=== PATIENT | male | born 1930 | race Two or more races ===

== ENCOUNTER 2016-11-02 11:11 | Inpatient (IN) | payer SELFPAY ==
[2016-11-02] MEDS ORDERED: NOREPINEPHRIN PREMIX 250 ML IV ONE (11:30)
[2016-11-02 11:32] LABS: POTASSIUM ISTAT 5.7 mmol/L (3.5-5.0)
[2016-11-02 11:33] LABS: BASO % 0 % (0-3); EOS % 0 % (0-3); HEMATOCRIT 37.6 % (39.0-53.0); HEMOGLOBIN 10.4 g/dL (13.0-17.5); LYMPH # 3.2 x10^3/uL (1.0-4.8); LYMPH % 27 % (24-48); MEAN CORPUSCULAR HEMOGLOBIN 25 pg (25-35); MEAN CORPUSCULAR HGB CONC 28 g/dL (31-37); MEAN CORPUSCULAR VOLUME 90 fL (79-100); MONO % 2 % (0-9); NEUT % 71 % (31-73); PLATELET COUNT 261 x10^3/uL (140-400); RED BLOOD COUNT 4.17 x10^6/uL (4.30-5.70); RED CELL DISTRIBUTION WIDTH 18.6 % (11.5-14.5); WHITE BLOOD COUNT 12.1 x10^3/uL (4.0-11.0)
[2016-11-02 11:40] LABS: GLUCOSE,URINE NEGATIVE (NEG)
[2016-11-02 11:42] LABS: PROTHROMBIN TIME PATIENT 21.3 SEC (11.7-14.0)
--- NOTE | 2016-11-02 11:42 | RAD ---
Indication assess tube placement. Respiratory failure. A single view of the chest was obtained. No prior imaging is available. There is volume loss in the left lower lobe compatible with scar or atelectasis. There is a patchy opacity in the right lung. Pneumonia is not excluded. The heart and pulmonary vessels are within normal limits. There is no pleural fluid or pneumothorax. Endotracheal tube has its tip appropriately positioned above the james. Nasogastric tube has its tip in the expected position of the mid body of the stomach. There is a dilated bowel loop in the left abdomen probably reflecting dilatation of the large bowel at the splenic flexure. IMPRESSION: Appropriately positioned endotracheal and nasogastric tubes. Volume loss at the left lung base likely reflecting atelectasis or scar. Possible pneumonia in the right lung.
[2016-11-02] MEDS ORDERED: CALCIUM GLUCONATE 1,000 MG/10 ML VIAL. IVP ONE (11:45)
[2016-11-02 11:47] LABS: ALBUMIN 2.1 g/dL (3.4-5.0); CALCIUM 8.3 mg/dL (8.5-10.1); CREATININE 1.5 mg/dL (0.7-1.3); DIRECT BILIRUBIN 0.3 mg/dL (0.0-0.2); GFR 44.6; MAGNESIUM 3.7 mg/dL (1.8-2.4); TOTAL BILIRUBIN 1.1 mg/dL (0.2-1.0); TOTAL PROTEIN 5.5 g/dL (6.4-8.2)
[2016-11-02 11:54] LABS: POTASSIUM 6.1 mmol/L (3.5-5.1)
[2016-11-02 11:55] LABS: BACTERIA,URINE 0 /HPF (0-FEW); RBC,URINE 0 /HPF (0-2); WBC,URINE 0 /HPF (0-4)
[2016-11-02] MEDS ORDERED: PIP/TAZO PER PHARMACY MC PRN (12:00)
[2016-11-02] MEDS ORDERED: PIPERACILLIN/TAZOBACTAM 3.375 GM in IV NORMAL SALINE 50ML 50 ML IV ONE (12:00)
[2016-11-02] MEDS ORDERED: EPINEPHrine SYRINGE 1 MG/10 ML SYRINGE ONE (12:00)
--- NOTE | 2016-11-02 12:07 | RAD ---
Indication found unresponsive. Noncontrast images of the head were obtained. No prior imaging of the head is available. The calvarium appears unremarkable. There is a minimal amount of fluid in the left maxillary sinus. Moderate amount of fluid is seen in the sphenoid sinus. These findings are probably incidental. There is no subdural or epidural hematoma. There is some underlying atrophy. There is no hemorrhage mass or midline shift. An acute finding is not seen. IMPRESSION: Intracranially no acute finding seen. Moderate atrophy. Minimal amount of fluid in the left maxillary sinus and small amount of fluid in the sphenoid sinus. PQRS Compliance Statement: One or more of the following individualized dose reduction techniques were utilized for this examination: 1. Automated exposure control 2. Adjustment of the mA and/or kV according to patient size 3. Use of iterative reconstruction technique
[2016-11-02 12:20] LABS: FIO2 ABG 100; HCO3 ABG 7 mmol/L (21-28); PCO2 ABG 56 mmHg (35-46); PH ABG < 6.72 (7.35-7.45); PO2 ABG 325 mmHg (65-108); SAT O2 ABG 100 % (92-99)
[2016-11-02] MEDS ORDERED: SODIUM BICARB ADULT 8.4% 50 MEQ/50 ML DISP.SYRIN. IV ONE (12:30)
[2016-11-02] MEDS ORDERED: MIDAZOLAM HCL/PF 2 MG/2 ML VIAL. ONE (12:57)
[2016-11-02] MEDS ORDERED: fentaNYL PF VIAL 100 MCG/2 ML VIAL ONE (12:57)
[2016-11-02] MEDS ORDERED: MIDAZOLAM HCL/PF 2 MG/2 ML VIAL. IV ONE (13:00)
[2016-11-02] MEDS ORDERED: fentaNYL PF VIAL 100 MCG/2 ML VIAL IV ONE (13:00)
[2016-11-02 13:14] LABS: % EOS 2 % (0-5); PLT ESTIMATE ADEQUATE (ADEQUATE)
[2016-11-02] MEDS ORDERED: IV NORMAL SALINE 1000ML BAG 1,000 ML IV ONE ×2 (13:15→13:30)
[2016-11-02] MEDS ORDERED: VANCOMYCIN PER PHARMACY MC PRN (13:15)
[2016-11-02 13:16] LABS: ANISOCYTOSIS PRESENT; HYPOCHROMIA PRESENT; OVALOCYTES PRESENT; POIKILOCYTOSIS PRESENT; SCHISTOCYTES FEW
[2016-11-02] MEDS ORDERED: VANCOMYCIN 1.5 GM in IV NORMAL SALINE 500ML BAG 500 ML IV ONE (13:30)
[2016-11-02] MEDS ORDERED: IOHEXOL 300 MG/ML 75 ML VIAL IV ONE (13:30)
--- NOTE | 2016-11-02 13:30 | RAD ---
Portable chest, 11/02/2016, 1:17 PM: History: Check central line placement Comparison is made to a study from earlier the same day. A left jugular central venous catheter has been inserted extending into the superior vena cava. The ET tube has its tip located well above the james. The NG tube tip is projected over approximately the region of the GE junction. A sidehole lies in the distal esophagus. The patient positioning is kyphotic. The heart is at the upper limits of normal in size. There are moderate streaky bibasilar opacities suggesting atelectasis. There is no evidence of pneumothorax or significant pleural fluid. There is gaseous distention of bowel loops in the upper abdomen. IMPRESSION: 1. Interval insertion of a left jugular central venous catheter extending into the superior vena cava. 2. The ET tube is in satisfactory position. 3. The tip of the NG tube lies near the level of the GE junction and should be advanced. 4. Moderate bibasilar atelectasis.
--- NOTE | 2016-11-02 13:44 | EKG ---
[facility] [address] [place] [address] Test Date: 2016-11-02 Test Time: 11:20:50 Pat Name: CATHIE MANNING Department: Room: 103 1 Gender: M Millwright Supervisor: : [id number] Requested By: MANUEL PONCE Order Number: [id number] Reading MD: Yanira Paez Measurements Intervals Hubert Rate: 78 P: 34 [place]: 196 QRS: 49 QRSD: 100 T: -144 QT: 410 QTc: 471 Interpretive Statements SINUS RHYTHM T ABNORMALITY IN ANTERIOR LEADS LATERAL LEADS INFEROLATERAL LEADS ABNORMAL ECG RI6.01 No previous ECG available for comparison Electronically Signed On 11-02-2016 20:52:11 CDT by Yanira Paez
[2016-11-02 13:54] VITALS: BP 128/61
[2016-11-02] MEDS ORDERED: VASOPRESSIN 40 UNIT in IV DEXTROSE 5% 100 ML IV PRN (14:15)
[2016-11-02] MEDS ORDERED: PHENYLEPHRINE INJ 80 MG in IV NORMAL SALINE 250ML 250 ML IV PRN (14:15)
--- NOTE | 2016-11-02 14:22 | RAD ---
Indication unresponsive. Respiratory failure. Axial images through the chest were obtained. The examination was tailored for the detection of pulmonary embolus. MIP images were generated and reviewed. Proximally 75 cc of Omnipaque [address] imaging of the abdomen is available. Imaging through the upper abdomen demonstrates generalized dilatation of the visualized large bowel. This may reflect ileus. An obstructing lesion in the distal left colon cannot be entirely excluded. An acute finding in the visualized upper abdomen is not seen. Endotracheal tube is appropriately positioned above the james. Nasogastric tube extends into the stomach. The thoracic aorta is grossly unremarkable. There is no significant hilar or mediastinal adenopathy. The study is negative for pulmonary embolus. A dominant soft tissue mass in either lung is not seen. There is volume loss in both lower lobes right somewhat greater than left compatible with atelectasis scar or pneumonia. There is marked compression of a thoracolumbar vertebral body segment and moderate compression of the immediately adjacent, caudal, segment. The chronicity of these findings is uncertain. IMPRESSION: Negative study for pulmonary embolus. Volume loss at the lung bases right greater than left compatible with atelectasis or pneumonia. Generalized dilatation of the visualized large bowel may reflect ileus. An obstructing lesion in the distal left colon cannot be entirely excluded. Compressed thoracolumbar vertebral body segments the chronicity of which is uncertain PQRS Compliance Statement: One or more of the following individualized dose reduction techniques were utilized for this examination: 1. Automated exposure control 2. Adjustment of the mA and/or kV according to patient size 3. Use of iterative reconstruction technique
[2016-11-02 14:34] LABS: HEMATOCRIT 36.3 % (39.0-53.0); RED BLOOD COUNT 4.08 x10^6/uL (4.30-5.70); RED CELL DISTRIBUTION WIDTH 18.5 % (11.5-14.5); WHITE BLOOD COUNT 17.4 x10^3/uL (4.0-11.0)
[2016-11-02] MEDS ORDERED: EPINEPHrine SYRINGE 1 MG/10 ML SYRINGE IV ONE ×2 (14:45)
--- NOTE | 2016-11-02 14:46 | PDOC1 ---
History and Physical Date of Admission Date of Admission DATE: 11/02/16 TIME: 14:35 Identification/Chief Complaint Chief Complaint cardiac arrest Problems: Source Source: Caregiver, Chart review History of Present Illness History of Present Illness 85 y.o male lives at home with dtr-in-law, bed bound (does not walk anymore and has chronic leg swelling), was having coughing spells this AM around 10 AM around breakfast time. NExt thing they realize, he slumped, stopped breathing and as per family acct was not breathing for a good 15 mins, EMS arrived, CPR performed at home, rhythms were asystole and pEA. Pt was intubated at ER, pupils blown out, needing 2 pressors at ER level, no response. Now seen in ICU, no sedation, cold to touch, on 3rd pressor, no urine output ( 50cc in bag). LActate 14, CXR and CT head read as unremarkable, got broad spectrum at ER x 1, Per family, only past medical is HTN, GERD., No known cardiac or pulmo hx. K 6 BIcarb is 8, pH on ABG is 6,.7, LActate of 14 AFTER HEAVY discussion and sitting down with the son and the rest of family members with an malay speaking relative, they all agreed on my recommendation of withdrawal of care and DNR. Waiting on sister tiffanie Dougherty who is currently enroute. Alex COMPUTER SYSTEMS SUPPORT SPECIALIST and MD financial sales consultant celena, Past Medical History Cardiovascular: HTN GI: GERD Past Surgical History Past Surgical History: No pertinent history Family History Family History: Family History Unknown Social History Smoke: No ALCOHOL: none Drugs: None Current Problem List Problem List Problems Medical Problems: (1) Respiratory failure Status: Acute Problems: Current Medications Current Medications Current Medications Epinephrine HCl 4 mg/Sodium Chloride 254 ml @ 3.81 mls/hr 1X ONCE IV Last administered on 11/02/16 13:26; Start 11/02/16 at 11:30; Stop 11/05/16 at 06:09 Norepinephrine Bitartrate (Levophed 8mg/ 250ml Premix Drip) 250 ml @ 0 mls/hr 1X ONCE IV Last administered on 11/02/16 11:28; Start 11/02/16 at 11:30; Stop 11/02/16 at 11:31; Status DC Calcium Gluconate 1000 mg 1,000 mg 1X ONCE IVP Last administered on 11/02/16 12:08; Start 11/02/16 at 11:45; Stop 11/02/16 at 11:46; Status DC Epinephrine HCl/ Sodium Chloride (Adrenalin/Iv Sodium Chloride 0.9% 250ml) 254 ml @ 0 mls/hr CONT PRN IV SEE I/O RECORD; Start 11/02/16 at 11:45 Piperacillin Sod/ Tazobactam Sod 1 each 1 each PRN DAILY PRN MC SEE COMMENTS; Start 11/02/16 at 12:00 Piperacillin Sod/ Tazobactam Sod/ Sodium Chloride (Zosyn/Iv Sodium Chloride 0.9 % 50ml) 50 ml @ 100 mls/hr 1X ONCE IV Last administered on 11/02/16 12:08; Start 11/02/16 at 12:00; Stop 11/02/16 at 12:29; Status DC Sodium Bicarbonate 100 meq 1X ONCE IV ; Start 11/02/16 at 12:30; Stop 11/02/16 at 12:31; Status DC Fentanyl Citrate (Fentanyl 2ml Vial) 25 mcg 1X ONCE IV Last administered on 13:00; Start 11/02/16 at 13:00; Stop 11/02/16 at 13:01; Status DC Midazolam HCl (Versed) 2 mg 1X ONCE IV Last administered on 11/02/16 13:00; Start 11/02/16 at 13:00; Stop 11/02/16 at 13:01; Status DC Fentanyl Citrate (Fentanyl 2ml Vial) 100 mcg STK-MED ONCE .ROUTE ; Start at 12:57; Stop 11/02/16 at 12:58; Status DC Midazolam HCl (Versed) 2 mg STK-MED ONCE .ROUTE ; Start 11/02/16 at 12:57; Stop 11/02/16 at 12:58; Status DC Vancomycin HCl 1 each 1 each PRN DAILY PRN MC SEE COMMENTS; Start 11/02/16 at 13 :15 Vancomycin HCl 1.5 gm/Sodium Chloride 500 ml @ 250 mls/hr 1X ONCE IV ; Start 11/02/16 at 13:30; Stop 11/02/16 at 15:29 Sodium Chloride 1,000 ml @ 1,000 mls/hr 1X ONCE IV Last administered on 5/3/ 17at 11:18; Start 11/02/16 at 13:15; Stop 11/02/16 at 14:14; Status DC Sodium Chloride (Iv Sodium Chloride 0.9% 1000ml Bag) 1,000 ml @ 1,000 mls/hr 1X ONCE IV ; Start 11/02/16 at 13:30; Stop 11/02/16 at 14:29; Status DC Iohexol 60 ml 60 ml 1X ONCE IV Last administered on 11/02/16t 13:46; Start 11/02 at 13:30; Stop 11/02/16 at 13:31; Status DC Phenylephrine HCl 80 mg/Sodium Chloride 258 ml @ 0 mls/hr CONT PRN IV SEE I/O RECORD; Start 11/02/16 at 14:15 Vasopressin/ Dextrose (Vasostrict) 102 ml @ 6 mls/hr CONT PRN IV SEE I/O RECORD ; Start 11/02/16 at 14:15 Allergies Allergies: Coded Allergies: Unable to Assess (Unverified , 11/02/16) ROS Review of System unable to obtain - clinically brain Physical Exam General: Other (unresponsive, intubated) HEENT: Atraumatic, Other (blown out pupil, no conjunctival reflex) Lungs: Normal air movement Heart: S1S2 Cardiovascular: S1, S2, Other (sinus tachy) Abdomen: Normal bowel sounds, Soft, No tenderness, No hepatosplenomegaly, No masses Male Genitals Exam: normal genitalia, normal prostate, other (no UO) Rectal Exam: not examined PELVIC: Nml ext genitalia Extremities: Other (swelling plus 2-3, pitting) Skin: Other (cold to touch) Vitals Vitals Vital Signs Date Time Temp Pulse Resp B/P Pulse Ox O2 Delivery O2 Flow Rate FiO2 11/02/16 13:08 85 20 131/54 99 Ventilator Labs Labs Laboratory Tests Test 11/02/16 11:12 11/02/16 11:16 11/02/16 11:19 11/02/16 11:25 White Blood Count 12.1x10^3/uL (4.0-11.0) Red Blood Count 4.17x10^6/uL (4.30-5.70) Hemoglobin 10.4g/dL (13.0-17.5) Hematocrit 37.6% (39.0-53.0) Mean Corpuscular Volume 90fL (79-100) Mean Corpuscular Hemoglobin 25pg (25-35) Mean Corpuscular Hemoglobin Concent 28g/dL (31-37) Red Cell Distribution Width 18.6% (11.5-14.5) Platelet Count 261x10^3/uL (140-400) Neutrophils (%) (Auto) 71% (31-73) Lymphocytes (%) (Auto) 27% (24-48) Monocytes (%) (Auto) 2% (0-9) Eosinophils (%) (Auto) 0% (0-3) Basophils (%) (Auto) 0% (0-3) Neutrophils # (Auto) 8.6x10^3uL (1.8-7.7) Lymphocytes # (Auto) 3.2x10^3/uL (1.0-4.8) Monocytes # (Auto) 0.2x10^3/uL (0.0-1.1) Eosinophils # (Auto) 0.1x10^3/uL (0.0-0.7) Basophils # (Auto) 0.0x10^3/uL (0.0-0.2) Segmented Neutrophils % 50% (35-66) Band Neutrophils % 11% (0-9) Lymphocytes % 28% (24-48) Monocytes % 9% (0-10) Eosinophils % 2% (0-5) Platelet Estimate Adequate (ADEQUATE) Hypochromasia Present Poikilocytosis Present Anisocytosis Present Ovalocytes Present Schistocytes Few Prothrombin Time 21.3SEC (11.7-14.0) Prothromb Time International Ratio 2.0 (0.8-1.1) Sodium Level 145mmol/L (136-145) Potassium Level 6.1mmol/L (3.5-5.1) Chloride Level 111mmol/L (98-107) Carbon Dioxide Level 13mmol/L (21-32) Anion Gap 21 (6-14) 21mmol/L (6-14) Blood Urea Nitrogen 33mg/dL (8-26) Creatinine 1.5mg/dL (0.7-1.3) Estimated GFR (Cockcroft-Gault) 44.6 Glucose Level 224mg/dL (70-99) 203mg/dL (70-99) Lactic Acid Level 14.5mmol/L (0.4-2.0) Calcium Level 8.3mg/dL (8.5-10.1) Magnesium Level 3.7mg/dL (1.8-2.4) Total Bilirubin 1.1mg/dL (0.2-1.0) Direct Bilirubin 0.3mg/dL (0.0-0.2) Aspartate Amino Transf (AST/SGOT) 148U/L (15-37) Alanine Aminotransferase (ALT/SGPT) 130U/L (16-63) Alkaline Phosphatase 100U/L (46-116) Creatine Kinase 143U/L (39-308) Creatine Kinase MB (Mass) 2.0ng/mL (0.0-3.6) Creatine Kinase MB Relative Index 1.4% (0-4) Troponin I Quantitative < 0.017ng/mL (0.000-0.055) BD-Rzo-T-Type Natriuretic Peptide 773pg/mL (0-449) Total Protein 5.5g/dL (6.4-8.2) Albumin 2.1g/dL (3.4-5.0) Bedside Troponin I 0.01ng/ml (<0.08) Bedside Hemoglobin 12.2g/dL (14-18) Bedside Hematocrit 36% (37-52) Bedside Sodium 142mmol/L (135-145) Bedside Potassium 5.7mmol/L (3.5-5.0) Bedside Chloride 114mmol/L (98-110) Bedside Total CO2 14mmol/L (23-32) Bedside Blood Urea Nitrogen 38mg/dL (8-26) Bedside Creatinine 1.1mg/dL (0.5-1.4) Bedside Ionized Calcium (Allan) 1.02mmol/L (1.13-1.32) Urine Collection Type U cath Urine Color Red Urine Clarity Clear Urine pH 5.0 Urine Specific Globe >=1.030 Urine Protein mg/dL (NEG-TRACE) Urine Glucose (UA) Negativemg/dL (NEG) Urine Ketones (Stick) mg/dL (NEG) Urine Blood Negative (NEG) Urine Nitrite (NEG) Urine Bilirubin (NEG) Urine Urobilinogen Dipstick mg/dL (0.2 mg/dL) Urine Leukocyte Esterase (NEG) Urine RBC 0/HPF (0-2) Urine WBC 0/HPF (0-4) Urine Bacteria 0/HPF (0-FEW) Test 11/02/16 11:54 O2 Saturation 100% (92-99) Arterial Blood pH < 6.72 (7.35-7.45) Arterial Blood pCO2 at Patient Temp 56mmHg (35-46) Arterial Blood pO2 at Patient Temp 325mmHg (65-108) Arterial Blood HCO3 7mmol/L (21-28) Arterial Blood Base Excess -28mmol/L (-3-3) FiO2 100 Laboratory Tests Test 11/02/16 11:12 11/02/16 11:16 11/02/16 11:19 11/02/16 11:25 White Blood Count 12.1x10^3/uL (4.0-11.0) Red Blood Count 4.17x10^6/uL (4.30-5.70) Hemoglobin 10.4g/dL (13.0-17.5) Hematocrit 37.6% (39.0-53.0) Mean Corpuscular Volume 90fL (79-100) Mean Corpuscular Hemoglobin 25pg (25-35) Mean Corpuscular Hemoglobin Concent 28g/dL (31-37) Red Cell Distribution Width 18.6% (11.5-14.5) Platelet Count 261x10^3/uL (140-400) Neutrophils (%) (Auto) 71% (31-73) Lymphocytes (%) (Auto) 27% (24-48) Monocytes (%) (Auto) 2% (0-9) Eosinophils (%) (Auto) 0% (0-3) Basophils (%) (Auto) 0% (0-3) Neutrophils # (Auto) 8.6x10^3uL (1.8-7.7) Lymphocytes # (Auto) 3.2x10^3/uL (1.0-4.8) Monocytes # (Auto) 0.2x10^3/uL (0.0-1.1) Eosinophils # (Auto) 0.1x10^3/uL (0.0-0.7) Basophils # (Auto) 0.0x10^3/uL (0.0-0.2) Segmented Neutrophils % 50% (35-66) Band Neutrophils % 11% (0-9) Lymphocytes % 28% (24-48) Monocytes % 9% (0-10) Eosinophils % 2% (0-5) Platelet Estimate Adequate (ADEQUATE) Hypochromasia Present Poikilocytosis Present Anisocytosis Present Ovalocytes Present Schistocytes Few Prothrombin Time 21.3SEC (11.7-14.0) Prothromb Time International Ratio 2.0 (0.8-1.1) Sodium Level 145mmol/L (136-145) Potassium Level 6.1mmol/L (3.5-5.1) Chloride Level 111mmol/L (98-107) Carbon Dioxide Level 13mmol/L (21-32) Anion Gap 21 (6-14) 21mmol/L (6-14) Blood Urea Nitrogen 33mg/dL (8-26) Creatinine 1.5mg/dL (0.7-1.3) Estimated GFR (Cockcroft-Gault) 44.6 Glucose Level 224mg/dL (70-99) 203mg/dL (70-99) Lactic Acid Level 14.5mmol/L (0.4-2.0) Calcium Level 8.3mg/dL (8.5-10.1) Magnesium Level 3.7mg/dL (1.8-2.4) Total Bilirubin 1.1mg/dL (0.2-1.0) Direct Bilirubin 0.3mg/dL (0.0-0.2) Aspartate Amino Transf (AST/SGOT) 148U/L (15-37) Alanine Aminotransferase (ALT/SGPT) 130U/L (16-63) Alkaline Phosphatase 100U/L (46-116) Creatine Kinase 143U/L (39-308) Creatine Kinase MB (Mass) 2.0ng/mL (0.0-3.6) Creatine Kinase MB Relative Index 1.4% (0-4) Troponin I Quantitative < 0.017ng/mL (0.000-0.055) RU-Dwr-S-Type Natriuretic Peptide 773pg/mL (0-449) Total Protein 5.5g/dL (6.4-8.2) Albumin 2.1g/dL (3.4-5.0) Bedside Troponin I 0.01ng/ml (<0.08) Bedside Hemoglobin 12.2g/dL (14-18) Bedside Hematocrit 36% (37-52) Bedside Sodium 142mmol/L (135-145) Bedside Potassium 5.7mmol/L (3.5-5.0) Bedside Chloride 114mmol/L (98-110) Bedside Total CO2 14mmol/L (23-32) Bedside Blood Urea Nitrogen 38mg/dL (8-26) Bedside Creatinine 1.1mg/dL (0.5-1.4) Bedside Ionized Calcium (Allan) 1.02mmol/L (1.13-1.32) Urine Collection Type U cath Urine Color Red Urine Clarity Clear Urine pH 5.0 Urine Specific Globe >=1.030 Urine Protein mg/dL (NEG-TRACE) Urine Glucose (UA) Negativemg/dL (NEG) Urine Ketones (Stick) mg/dL (NEG) Urine Blood Negative (NEG) Urine Nitrite (NEG) Urine Bilirubin (NEG) Urine Urobilinogen Dipstick mg/dL (0.2 mg/dL) Urine Leukocyte Esterase (NEG) Urine RBC 0/HPF (0-2) Urine WBC 0/HPF (0-4) Urine Bacteria 0/HPF (0-FEW) Test 11/02/16 11:54 O2 Saturation 100% (92-99) Arterial Blood pH < 6.72 (7.35-7.45) Arterial Blood pCO2 at Patient Temp 56mmHg (35-46) Arterial Blood pO2 at Patient Temp 325mmHg (65-108) Arterial Blood HCO3 7mmol/L (21-28) Arterial Blood Base Excess -28mmol/L (-3-3) FiO2 100 VTE Prophylaxis Ordered VTE Prophylaxis Devices: Contraindicated VTE Pharmacological Prophylaxi: Contraindicated Assessment/Plan Assessment/Plan 1, Prolong cardio-pulmonary arrest, outside of the hospital 2. HTN by hx 3. PArkinsons by hx 4. GERD with minor gIB by hx 5. GAp metabolic acidosis with CRITICALLY elevated lactate (14) 6. LEulocytosis post cardiac arrest 7. LIkely aspiration causing respiratory arrest 8. BEd bound, chronic leg swelling 9. ACidemia with pH 6.7 incompatible with life 10. Anemia, likely chronic 11. Anuric renal failure 12. DNR PLAN: NOw DNR, withdrawal of care later when sister arrives Dw COMPUTER SYSTEMS SUPPORT SPECIALIST and family CC 40 mins AYESHA GAMEZ MD November 02, 2016 14:46
[2016-11-02 14:55] LABS: ALBUMIN 1.8 g/dL (3.4-5.0); ALBUMIN/GLOBULIN RATIO 0.5 (1.0-1.7); CALCIUM 7.7 mg/dL (8.5-10.1); CREATININE 1.6 mg/dL (0.7-1.3); GFR 41.4; MAGNESIUM 3.8 mg/dL (1.8-2.4); TOTAL BILIRUBIN 1.2 mg/dL (0.2-1.0); TOTAL PROTEIN 5.1 g/dL (6.4-8.2)
--- NOTE | 2016-11-02 14:58 | PHYS DOC ---
Past Medical History Past Medical History: Other Additional Past Medical Histor: parkinsons Past Surgical History: Other Additional Past Surgical Histo: unknown Alcohol Use: None Drug Use: None Adult General Chief Complaint Chief Complaint: CPR/FULL ARREST HPI HPI Patient is a 85 year old male who presents after cardiac arrest. Patient was at home sitting on a Family Members Noticed He Was Unresponsive. 911 Was Called and EMS Reported That He Was Pulseless upon Arrival. They Initiated CPR, Patient Had a Initial Rhythm of Asystole, Epinephrine Was Given, IO Was Placed, LMA airway was placed as They Could Not Perform Endotracheal Intubation. Patient went into PDA. Total of 3 rounds of epinephrine given by EMS. Patient's pulse returned, appeared to be sinus to EMS. No other significant history was reported, family told paramedics patient had hypertension. There was a language barrier at the scene. Review of Systems Review of Systems Unable to obtain due to medical condition Current Medications Current Medications Current Medications Medications (Trade) Dose Ordered Sig/Charles Start Time Stop Time Status Last Admin Dose Admin Calcium Gluconate 1000 mg 1,000 mg 1X ONCE 11/02/16 11:45 11/02/16 11:46 DC 11/02/16 12:08 1,000 MG Epinephrine HCl 4 mg/Sodium Chloride 254 ml @ 3.81 mls/hr 1X ONCE 11/02/16 11:30 11/05/16 06:09 11/02/16 13:26 3.81 MLS/HR Epinephrine HCl/ Sodium Chloride (Adrenalin/Iv Sodium Chloride 0.9% 250ml) 254 ml @ 0 mls/hr CONT PRN 11/02/16 11:45 Norepinephrine Bitartrate (Levophed 8mg/ 250ml Premix Drip) 250 ml @ 0 mls/hr 1X ONCE 11/02/16 11:30 11/02/16 11:31 DC 11/02/16 11:28 9.375 MLS/HR Piperacillin Sod/ Tazobactam Sod 1 each 1 each PRN DAILY PRN 11/02/16 12:00 Piperacillin Sod/ Tazobactam Sod/ Sodium Chloride (Zosyn/Iv Sodium Chloride 0.9% 50ml) 50 ml @ 100 mls/hr 1X ONCE 11/02/16 12:00 11/02/16 12:29 DC 11/02/16 12:08 100 MLS/HR Sodium Bicarbonate 100 meq 1X ONCE 11/02/16 12:30 11/02/16 12:31 DC Allergies Allergies Allergies Coded Allergies Type Severity Reaction Last Updated Verified Unable to Assess 11/02/16 No Physical Exam Physical Exam Constitutional: Unresponsive, actively being bagged HENT: Normocephalic, atraumatic, dry mucous membranes, appears to have a vomit on the right side of his cheek Eyes:pupils are blown bilaterally and unreactive Neck: Trachea is midline Cardiovascular:Heart rate regular with regular rhythm Lungs & Thorax: No spontaneous respirations, bilateral breath sounds with bagging Abdomen: Soft, nondistended Skin: Warm, dry Extremities: No deformity, no significant edema Neurologic: Obtunded Current Patient Data Vital Signs Vital Signs Date Time Temp Pulse Resp B/P Pulse Ox O2 Delivery O2 Flow Rate FiO2 11/02/16 12:33 60 92/39 97 Ventilator 11/02/16 12:28 20 Lab Values Laboratory Tests Test 11/02/16 11:12 11/02/16 11:16 11/02/16 11:19 11/02/16 11:25 White Blood Count 12.1x10^3/uL (4.0-11.0) H Red Blood Count 4.17x10^6/uL (4.30-5.70) L Hemoglobin 10.4g/dL (13.0-17.5) L Hematocrit 37.6% (39.0-53.0) L Mean Corpuscular Volume 90fL (79-100) Mean Corpuscular Hemoglobin 25pg (25-35) Mean Corpuscular Hemoglobin Concent 28g/dL (31-37) L Red Cell Distribution Width 18.6% (11.5-14.5) H Platelet Count 261x10^3/uL (140-400) Neutrophils (%) (Auto) 71% (31-73) Lymphocytes (%) (Auto) 27% (24-48) Monocytes (%) (Auto) 2% (0-9) Eosinophils (%) (Auto) 0% (0-3) Basophils (%) (Auto) 0% (0-3) Neutrophils # (Auto) 8.6x10^3uL (1.8-7.7) H Lymphocytes # (Auto) 3.2x10^3/uL (1.0-4.8) Monocytes # (Auto) 0.2x10^3/uL (0.0-1.1) Eosinophils # (Auto) 0.1x10^3/uL (0.0-0.7) Basophils # (Auto) 0.0x10^3/uL (0.0-0.2) Segmented Neutrophils % 50% (35-66) Band Neutrophils % 11% (0-9) H Lymphocytes % 28% (24-48) Monocytes % 9% (0-10) Eosinophils % 2% (0-5) Platelet Estimate Adequate (ADEQUATE) Hypochromasia Present Poikilocytosis Present Anisocytosis Present Ovalocytes Present Schistocytes Few Prothrombin Time 21.3SEC (11.7-14.0) H Prothrombin Time INR 2.0 (0.8-1.1) H Sodium Level 145mmol/L (136-145) Potassium Level 6.1mmol/L (3.5-5.1) *H Chloride Level 111mmol/L (98-107) H Carbon Dioxide Level 13mmol/L (21-32) L Anion Gap 21 (6-14) H 21mmol/L (6-14) H Blood Urea Nitrogen 33mg/dL (8-26) H Creatinine 1.5mg/dL (0.7-1.3) H Estimated GFR (Cockcroft-Gault) 44.6 Glucose Level 224mg/dL (70-99) H 203mg/dL (70-99) H Lactic Acid Level 14.5mmol/L (0.4-2.0) *H Calcium Level 8.3mg/dL (8.5-10.1) L Magnesium Level 3.7mg/dL (1.8-2.4) H Total Bilirubin 1.1mg/dL (0.2-1.0) H Direct Bilirubin 0.3mg/dL (0.0-0.2) H Aspartate Amino Transferase (AST) 148U/L (15-37) H Alanine Aminotransferase (ALT) 130U/L (16-63) H Alkaline Phosphatase 100U/L (46-116) Creatine Kinase 143U/L (39-308) Creatine Kinase MB (Mass) 2.0ng/mL (0.0-3.6) Creatine Kinase MB Relative Index 1.4% (0-4) Troponin I Quantitative < 0.017ng/mL (0.000-0.055) XJ-Vlw-H-Type Natriuretic Peptide 773pg/mL (0-449) H Total Protein 5.5g/dL (6.4-8.2) L Albumin 2.1g/dL (3.4-5.0) L POC Troponin I 0.01ng/ml (<0.08) POC Hemoglobin 12.2g/dL (14-18) L POC Hematocrit 36% (37-52) L POC Sodium 142mmol/L (135-145) POC Potassium 5.7mmol/L (3.5-5.0) H POC Chloride 114mmol/L (98-110) H POC Total CO2 14mmol/L (23-32) L POC Blood Urea Nitrogen 38mg/dL (8-26) H POC Creatinine 1.1mg/dL (0.5-1.4) POC Ionized Calcium (Allan) 1.02mmol/L (1.13-1.32) L Urine Collection Type U cath Urine Color Red Urine Clarity Clear Urine pH 5.0 Urine Specific [place] >=1.030 Urine Protein mg/dL (NEG-TRACE) Urine Glucose (UA) Negativemg/dL (NEG) Urine Ketones (Stick) mg/dL (NEG) Urine Blood Negative (NEG) Urine Nitrite (NEG) Urine Bilirubin (NEG) Urine Urobilinogen Dipstick mg/dL (0.2 mg/dL) Urine Leukocyte Esterase (NEG) Urine RBC 0/HPF (0-2) Urine WBC 0/HPF (0-4) Urine Bacteria 0/HPF (0-FEW) Test 11/02/16 11:54 O2 Saturation 100% (92-99) H Arterial Blood pH < 6.72 (7.35-7.45) *L Arterial Blood pCO2 at Patient Temp 56mmHg (35-46) H Arterial Blood pO2 at Patient Temp 325mmHg (65-108) H Arterial Blood HCO3 7mmol/L (21-28) L Arterial Blood Base Excess -28mmol/L (-3-3) L FiO2 100 Laboratory Tests 11/02/16 11:12 Laboratory Tests 11/02/16 11:12 11/02/16 11:19 EKG EKG 78 bpm appears sinus with normal axis, QTC of 471, ST elevation or depression, T -wave inversions noted in V3 through V6, aVF, 2, interpreted by me Radiology/Procedures Radiology/Procedures All radiographs are reviewed by me [] Course & Med Decision Making Course & Med Decision Making Pertinent Labs and Imaging studies reviewed. (See chart for details) Patient was seen upon arrival. Please see nursing notes for complete runner. Patient was intubated not requiring any paralytics. He had no active respiratory drive on his own. He does have fixed pupils. His initial ABG showed severe acidosis. We increased his respiratory rate, 2 A of bicarbonate was given. Patient also received calcium gluconate, 2 L IV fluids, started on Levothroid. Patient treated with Zosyn and being for his pneumonia, blood cultures were ordered. Patient had a left IJ placed by me. Chest x-ray shows good placement. I spoke with Dr. Robles who accepted this patient for admission. I also consulted nephrology, Dr.'s Pinzon and Dr. Herrera of pulmonology. Indication: Respiratory failure Consent: Unable to give consent due to emergent nature. Medications Used: see nursing note Procedure: The patient was placed in the appropriate position. Intubation was performed glidescope 7.5 endotracheal tube not passable due to some obstruction. 6.5 tube placed at 24 at tooth. Initial confirmation of placement included bilateral breath sounds, tube fogging, adequate chest rise, adequate pulse oximetry reading. A chest x-ray to verify correct placement of the tube showed appropriate tube position. The patient tolerated the procedure well. Complications: none. Indication: Vascular access Consent: The patient provided consent for this procedure. Procedure: The patient was positioned appropriately and the skin over the left IJ was prepped and draped in a sterile fashion. Local anesthesia was used. Ultrasound guidance utilized. A large bore needle was used to identify the vein. A guide wire was then inserted into the vein through the needle. A triple lumen catheter was then inserted into the vessel over the guide wire using the Seldinger technique. All ports showed good, free flowing blood return and were flushed with saline solution. The catheter was then securely fastened to the skin with sutures and covered with a sterile dressing. A post procedure X-ray was ordered. The patient tolerated the procedure well. Complications: none. [] ] Pt cooled per hypothermic protocol, I talked with the family. Pt on Levo and epi drips Total critical care time: 75 minutes excluding procedures Dragon Disclaimer Dragon Disclaimer This electronic medical record was generated, in whole or in part, using a voice recognition dictation system. Departure Departure Impression: Primary Impression: Respiratory failure Additional Impression: Cardiac arrest Disposition: 09 ADMITTED INPATIENT Condition: CRITICAL Problem Qualifiers KAUSHAL SMITH MD November 02, 2016 14:58
[2016-11-02 15:02] LABS: POTASSIUM 7.5 mmol/L (3.5-5.1)
[2016-11-02] MEDS ORDERED: NOREPINEPHRIN PREMIX 250 ML IV PRN (15:45)
--- NOTE | 2016-11-02 17:00 | CONS ---
DATE OF CONSULTATION: PULMONARY CONSULTATION ATTENDING PHYSICIAN: Dr. Thakkar. REASON FOR CONSULTATION: Cardiac arrest, respiratory failure. HISTORY OF PRESENT ILLNESS: The patient is an 85-year-old male who was found unresponsive at home by family members. The 911 was called and EMS arrived. Upon arrival, he was noted to be pulseless. He had an atrial rhythm of asystole. He had three rounds of epinephrine. Intraosseous line was placed and LMA airway was placed, as they could not perform endotracheal intubation. The patient then had a PEA arrest. He was intubated in the [facility] by ER physician. The patient was in shock. Despite fluid boluses, the blood pressure remained very low. He was requiring 2 doses of vasopressors in the ER. His pupils are fixed and dilated. When I spoke to the ER physician, we did decide to go with CT angio to rule out PE. I have reviewed the CT chest. There was no evidence of any pulmonary embolism. There is volume loss at the right base more than the left base. This probably is atelectasis. His dilatation of the large bowel is suggesting ileus. An obstructing lesion cannot be ruled out. The family was at the bedside. There were, in fact, multiple family members. They did agree to make him a DNR, but at the same time, they are waiting for other family members before consideration of withdrawal of care. The patient is now on 4 vasopressors including epinephrine, phenylephrine, norepinephrine and vasopressin. He is still unable to get a systolic blood pressure. PAST MEDICAL HISTORY: History of hypertension. PAST SURGICAL HISTORY: Unknown. ALLERGIES: Unknown. MEDICATIONS: At present were all reviewed as listed in the MRAD. PHYSICAL EXAMINATION: GENERAL: He is intubated. He has a core temperature of 88 degree Fahrenheit. Blood pressure: Unable to get. The last checked was 128 systolic on 4 pressors. HEENT: Pupils are fixed and dilated. NECK: Supple. LUNGS: With diminished breath sounds. CARDIOVASCULAR: Regular rate and tachycardia. ABDOMEN: Firm with decreased bowel sounds. EXTREMITIES: With 2+ pitting edema. LABORATORY DATA: Labs were reviewed. White cell count 17.4, hemoglobin 10.0 and platelets are 295. His potassium is 7.5. Bicarbonate is 9. BUN 34 and creatinine 1.6. Lactic acid 14.5. ABGs with a pH of 6.7, pCO2 of 56 and a pO2 of 325 immediately post-intubation. IMPRESSION: 1. Acute respiratory failure secondary to cardiac arrest. Etiology appears to be severe metabolic acidosis. I cannot exclude a cardiac etiology of the arrest. 2. Severe metabolic acidosis and lactic acidosis. I suspect we may be dealing with the ischemic bowel. The patient has been complaining of abdominal pain per family members. He has abnormal CT with dilated loops of bowels and suspecting ileus. He may have an obstructing neoplasm. He has severe metabolic acidosis, which could be secondary to ischemia of the bowel. 3. Hyperkalemia. 4. Acute renal failure. 5. Marked lactic acidosis secondary to shock. 6. Coagulopathy. RECOMMENDATIONS: 1. Continue with present assist control mode. 2. Broad-spectrum antibiotic. 3. Continue with present vasopressors. 4. Correction of hyperkalemia. 5. Discussed with the entire family at the bedside. They are all leaning towards withdrawal of care. At present, he is DNR. There are 2 other family members who are on their way from [place]. Once they arrive, they would consider withdrawal of care. Discussed with RN and RT and ER physician. CRITICAL CARE TIME: 40 minutes. RADHA IRVING MD DR: TERRANCE/graham JOB#: [id number] / [id number] RAPHAEL
--- NOTE | 2016-11-02 17:52 | ACF ---
Admission Forms Criteria RESPIRATORY FAILURE [facility] Clinical Indications for Admission to Inpatient Care (Place 'X' for any and all applicable criteria): Hospital admission is needed for appropriate care of the patient because of acute respiratory failure or insufficiency as indicated by ANY ONE of the following(1)(2)(3)(4)(5)(6)(7)(8): [X]I. Mechanical ventilation needed (acute invasive or noninvasive) [ ]II. Severe ventilation deficit as indicated by ANY ONE of the following (9) [ ]a) Respiratory acidosis (pH less than 7.32 and partial pressure of carbon dioxide greater than 40 mm Hg (5.3 kPa)) [ ]b) Partial pressure of carbon dioxide greater than 44 mm Hg (5.9 kPa ) (new) [ ]c) Airflow measurements less than 25% of predicted (eg, peak expiratory flow rate less than 100 L/minute) [ ]d) Forced vital capacity less than 15 mL/kg of ideal body weight, or 50% decrease in vital capacity from baseline [ ]III. Noncardiac pulmonary edema not resolving with rapid emergency treatment (8) [ ]IV. Severe respiratory distress as indicated by ANY ONE of the following: [ ]a) Severe tachypnea (respiratory rate greater than 30, greater than 45 for 6-month-old, greater than 60 for ) [ ]b) Severe hypoxemia (partial pressure of oxygen less than 50 mm Hg ( 6.7 kPa) on greater than 50% oxygen or partial pressure of oxygen to FIO2 ratio less than 200) [ ]c) Mental status deterioration from respiratory disease [ ]V. Airway obstruction or inadequate protection [A](10)(11) The original [employer] content created by [employer] has been revised. The portions of the content which have been revised are identified through the use of italic text or in bold, and [employer] has neither reviewed nor approved the modified material. All other unmodified content is copyright [employer]. Please see references footnoted in the original [employer] edition 2016 Admission Criteria Met?: Yes MARGARET FARRIS November 02, 2016 17:52
[2016-11-02] MEDS ORDERED: PIPERACILLIN/TAZOBACTAM 3.375 GM in IV NORMAL SALINE 50ML 50 ML IV SCH (18:00)
--- NOTE | 2016-11-04 09:40 | PDOC3 ---
Discharge Summary Visit Information Date of Admission: November 02, 2016 Date of Discharge: November 04, 2016 Admitting Diagnosis Comment: 1, Prolong cardio-pulmonary arrest, outside of the hospital 2. HTN by hx 3. PArkinsons by hx 4. GERD with minor gIB by hx 5. GAp metabolic acidosis with CRITICALLY elevated lactate (14) 6. LEulocytosis post cardiac arrest 7. LIkely aspiration causing respiratory arrest 8. BEd bound, chronic leg swelling 9. ACidemia with pH 6.7 incompatible with life 10. Anemia, likely chronic 11. Anuric renal failure 12. DNR Final Diagnosis Problems Medical Problems: (1) Cardiac arrest Status: Acute (2) Respiratory failure Status: Acute Brief Hospital Course Allergies Allergies Coded Allergies Type Severity Reaction Last Updated Verified Unable to Assess 11/02/16 No Lab Results Laboratory Tests Test 11/02/16 11:12 11/02/16 11:16 11/02/16 11:19 11/02/16 11:25 White Blood Count 12.1 x10^3/uL (4.0-11.0) Red Blood Count 4.17 x10^6/uL (4.30-5.70) Hemoglobin 10.4 g/dL (13.0-17.5) Hematocrit 37.6 % (39.0-53.0) Mean Corpuscular Volume 90 fL (79-100) Mean Corpuscular Hemoglobin 25 pg (25-35) Mean Corpuscular Hemoglobin Concent 28 g/dL (31-37) Red Cell Distribution Width 18.6 % (11.5-14.5) Platelet Count 261 x10^3/uL (140-400) Neutrophils (%) (Auto) 71 % (31-73) Lymphocytes (%) (Auto) 27 % (24-48) Monocytes (%) (Auto) 2 % (0-9) Eosinophils (%) (Auto) 0 % (0-3) Basophils (%) (Auto) 0 % (0-3) Neutrophils # (Auto) 8.6 x10^3uL (1.8-7.7) Lymphocytes # (Auto) 3.2 x10^3/uL (1.0-4.8) Monocytes # (Auto) 0.2 x10^3/uL (0.0-1.1) Eosinophils # (Auto) 0.1 x10^3/uL (0.0-0.7) Basophils # (Auto) 0.0 x10^3/uL (0.0-0.2) Segmented Neutrophils % 50 % (35-66) Band Neutrophils % 11 % (0-9) Lymphocytes % 28 % (24-48) Monocytes % 9 % (0-10) Eosinophils % 2 % (0-5) Platelet Estimate Adequate (ADEQUATE) Hypochromasia Present Poikilocytosis Present Anisocytosis Present Ovalocytes Present Schistocytes Few Prothrombin Time 21.3 SEC (11.7-14.0) Prothromb Time International Ratio 2.0 (0.8-1.1) Sodium Level 145 mmol/L (136-145) Potassium Level 6.1 mmol/L (3.5-5.1) Chloride Level 111 mmol/L (98-107) Carbon Dioxide Level 13 mmol/L (21-32) Anion Gap 21 (6-14) 21 mmol/L (6-14) Blood Urea Nitrogen 33 mg/dL (8-26) Creatinine 1.5 mg/dL (0.7-1.3) Estimated GFR (Cockcroft-Gault) 44.6 Glucose Level 224 mg/dL (70-99) 203 mg/dL (70-99) Lactic Acid Level 14.5 mmol/L (0.4-2.0) Calcium Level 8.3 mg/dL (8.5-10.1) Magnesium Level 3.7 mg/dL (1.8-2.4) Total Bilirubin 1.1 mg/dL (0.2-1.0) Direct Bilirubin 0.3 mg/dL (0.0-0.2) Aspartate Amino Transf (AST/SGOT) 148 U/L (15-37) Alanine Aminotransferase (ALT/SGPT) 130 U/L (16-63) Alkaline Phosphatase 100 U/L (46-116) Creatine Kinase 143 U/L (39-308) Creatine Kinase MB (Mass) 2.0 ng/mL (0.0-3.6) Creatine Kinase MB Relative Index 1.4 % (0-4) Troponin I Quantitative < 0.017 ng/mL (0.000-0.055) VQ-Ekn-E-Type Natriuretic Peptide 773 pg/mL (0-449) Total Protein 5.5 g/dL (6.4-8.2) Albumin 2.1 g/dL (3.4-5.0) Bedside Troponin I 0.01 ng/ml (<0.08) Bedside Hemoglobin 12.2 g/dL (14-18) Bedside Hematocrit 36 % (37-52) Bedside Sodium 142 mmol/L (135-145) Bedside Potassium 5.7 mmol/L (3.5-5.0) Bedside Chloride 114 mmol/L (98-110) Bedside Total CO2 14 mmol/L (23-32) Bedside Blood Urea Nitrogen 38 mg/dL (8-26) Bedside Creatinine 1.1 mg/dL (0.5-1.4) Bedside Ionized Calcium (Allan) 1.02 mmol/L (1.13-1.32) Urine Collection Type U cath Urine Color Red Urine Clarity Clear Urine pH 5.0 Urine Specific [place] >=1.030 Urine Protein mg/dL (NEG-TRACE) Urine Glucose (UA) Negative mg/dL (NEG) Urine Ketones (Stick) mg/dL (NEG) Urine Blood Negative (NEG) Urine Nitrite (NEG) Urine Bilirubin (NEG) Urine Urobilinogen Dipstick mg/dL (0.2 mg/dL) Urine Leukocyte Esterase (NEG) Urine RBC 0 /HPF (0-2) Urine WBC 0 /HPF (0-4) Urine Bacteria 0 /HPF (0-FEW) Test 11/02/16 11:54 11/02/16 14:20 O2 Saturation 100 % (92-99) Arterial Blood pH < 6.72 (7.35-7.45) Arterial Blood pCO2 at Patient Temp 56 mmHg (35-46) Arterial Blood pO2 at Patient Temp 325 mmHg (65-108) Arterial Blood HCO3 7 mmol/L (21-28) Arterial Blood Base Excess -28 mmol/L (-3-3) FiO2 100 White Blood Count 17.4 x10^3/uL (4.0-11.0) Red Blood Count 4.08 x10^6/uL (4.30-5.70) Hemoglobin 10.0 g/dL (13.0-17.5) Hematocrit 36.3 % (39.0-53.0) Mean Corpuscular Volume 89 fL (79-100) Mean Corpuscular Hemoglobin 25 pg (25-35) Mean Corpuscular Hemoglobin Concent 28 g/dL (31-37) Red Cell Distribution Width 18.5 % (11.5-14.5) Platelet Count 295 x10^3/uL (140-400) Sodium Level 142 mmol/L (136-145) Potassium Level 7.5 mmol/L (3.5-5.1) Chloride Level 110 mmol/L (98-107) Carbon Dioxide Level 9 mmol/L (21-32) Anion Gap 23 (6-14) Blood Urea Nitrogen 34 mg/dL (8-26) Creatinine 1.6 mg/dL (0.7-1.3) Estimated GFR (Cockcroft-Gault) 41.4 BUN/Creatinine Ratio 21 (6-20) Glucose Level 97 mg/dL (70-99) Calcium Level 7.7 mg/dL (8.5-10.1) Magnesium Level 3.8 mg/dL (1.8-2.4) Total Bilirubin 1.2 mg/dL (0.2-1.0) Aspartate Amino Transf (AST/SGOT) 332 U/L (15-37) Alanine Aminotransferase (ALT/SGPT) 269 U/L (16-63) Alkaline Phosphatase 191 U/L (46-116) Total Protein 5.1 g/dL (6.4-8.2) Albumin 1.8 g/dL (3.4-5.0) Albumin/Globulin Ratio 0.5 (1.0-1.7) Brief Hospital Course Mr. Steinberg is a 85 old [sex] who presented with [ ] History of Present Illness 85 y.o male lives at home with dtr-in-law, bed bound (does not walk anymore and has chronic leg swelling), was having coughing spells this AM around 10 AM around breakfast time. NExt thing they realize, he slumped, stopped breathing and as per family acct was not breathing for a good 15 mins, EMS arrived, CPR performed at home, rhythms were asystole and pEA. Pt was intubated at ER, pupils blown out, needing 2 pressors at ER level, no response. Now seen in ICU, no sedation, cold to touch, on 3rd pressor, no urine output ( 50cc in bag). LActate 14, CXR and CT head read as unremarkable, got broad spectrum at ER x 1, Per family, only past medical is HTN, GERD., No known cardiac or pulmo hx. K 6 BIcarb is 8, pH on ABG is 6,.7, LActate of 14 AFTER HEAVY discussion and sitting down with the son and the rest of family members with an croatian speaking relative, they all agreed on my recommendation of withdrawal of care and DNR. Waiting on sister tiffanie Dougherty who is currently enroute. Dw [employer] GR[employer]ER and MD paper cone grader celena, PT WITHIN 6 HRS aFTER ADMISSION, CERT SIGNED ON LINE Discharge Information Disposition/Orders: AYESHA GAMEZ MD November 04, 2016 09:40
== END 2016-11-02 16:56 | disposition expired | DRG 208 ==
LOC: EDBD 11:11 → ER 11:11 → 1 WEST ICU 12:35
PROVIDERS: ADMIT Internal Medicine; ATTEND Internal Medicine
PROC: 5A1935Z Respiratory Ventilation, Less than 24 Consecutive Hours (ICD-10-PCS; principal; 2016-11-02)
PROC: 5A12012 Performance of Cardiac Output, Single, Manual (ICD-10-PCS; 2016-11-02)
DX: J96.00 Acute respiratory failure, unspecified whether with hypoxia or hypercapnia (principal); D68.9 Coagulation defect, unspecified; E87.2 Acidosis; J98.11 Atelectasis; N17.9 Acute kidney failure, unspecified; R57.9 Shock, unspecified; D64.9 Anemia, unspecified; E87.5 Hyperkalemia; G20 Parkinson's disease; I10 Essential (primary) hypertension; I46.9 Cardiac arrest, cause unspecified; K21.9 Gastro-esophageal reflux disease without esophagitis; Z66 Do not resuscitate; Z74.01 Bed confinement status
CPT/HCPCS: 36415; 36600; 70450; 71010; 71275; 80047; 80048; 80053; 80076; 81001; 82550; 82553; 82805; 83605; 83735; 83880; 84484; 85007; 85027; 85610; 87040; 87205; 93005; 94002; 96361; 96365; 96367; 96375; 96376; J0171; J0610; J2250; J2543; J3010; J3490; J7030; J7050; Q9967; 99285-25